=== PATIENT | female | born 1960 | race Caucasian/White ===

== ENCOUNTER 2018-10-11 07:30 | Day surgery (SDC) | payer BC ==
[~2018-10-11] VITALS: Ht 165.1 cm; Wt 76.7 kg
[~2018-10-11 07:30] MED LIST: ASPIRIN EC81 MG PO; CALCIUM + D3 E1 EACH PO; FISH OIL 1,0001 EAC3 PO; MULTI VITAMIN1 EACH PO; VITAMIN C1000 M1 PO; VITAMIN E100 UNIT PO
[2018-10-11] MEDS ORDERED: MOTRIN IB200 MG PO (10:45)
[2018-10-11] MEDS ORDERED: TYLENOL325 MG PO (10:45)
[2018-10-11] MEDS ORDERED: PERCOCET 7.5-31 EACH PO (10:46)
--- NOTE | 2018-10-17 11:12 | OR ---
[facility] [address], [place] [address] Signed DATE OF OPERATION: 10/11/2018 SURGEON: Rafal Veronica MD PREOPERATIVE DIAGNOSIS: Right upper outer quadrant breast abnormality, possible radial scar (nonpalpable). POSTOPERATIVE DIAGNOSIS: Right upper outer quadrant breast abnormality, possible radial scar (nonpalpable). PROCEDURE PERFORMED: Right upper outer quadrant breast needle localized partial breast excision. ANESTHESIA: General LMA; Rafal Bradshaw CRNA; and local 10 mL of 0.25% Marcaine with epinephrine. INDICATION: This 58-year-old white woman is a patient of Dr. Ankit Coughlin and underwent mammography showing a lesion in the upper outer aspect of the right breast that appeared stellate. Consideration was made for radial scar. An ultrasound was performed showing no sign of solid lesion. She may have family history of breast cancer in her maternal grandmother. She has never had breast problems in the past and has no associated symptoms of nipple discharge or other abnormality. She is admitted at this time to undergo a needle localized excisional biopsy. She understands the risks of bleeding, infection, cosmetic deformity, and need for further treatment should cancer be found. Understanding this, she wishes to proceed. FINDINGS: Review of the imaging studies with needle localization was undertaken with radiologist, Dr. Thacker. The area excised was wide commensurate with the size of the lesion of about 3 cm. The parenchyma of the breast that was excised felt slightly fibrous, did not feel to be a hard mass. Specimen radiograph confirmed the lesion was in the excised specimen. The specimen was oriented with sutures for pathologic reference. DESCRIPTION OF PROCEDURE: The patient was received from the radiology suite having undergone needle localization under mammographic control. Wire emanated from the outer aspect of the right breast. She was given a general anesthetic with LMA technique. Preoperative antibiotics were given. Sequential compression device stockings used and heparin subcutaneously administered. The wire emanated several centimeters from the areolar margin and most Electronically Signed By: RAFLA VERONICA MD 10/17/18 1112 PATIENT NAME: LUZ HUBBARD OPERATIVE REPORT DATE OF : 56 REPORT #: [id number] PHYSICIAN: RAFAL VERONICA MD PCP: DAVID SAINZ PAC REPORT IS CONFIDENTIAL AND NOT TO BE RELEASED WITHOUT AUTHORIZATION [facility] [address], [place] [address] Signed optimal incision was really directly near the needle. This was made in a curvilinear configuration in the lateral aspect of the right breast. Dissection carried through the dermis sharply. The wire was delivered into the wound and the parenchyma grasped with an Allis clamp. Using electrocautery excision was undertaken commensurate with the imaging localization. Wide dissection was undertaken and dissection taken well beyond the tip of the needle. The specimen was marked with a short stitch tube superiorly a long stitch laterally and a double stitch in the deep margin. Specimen sent for specimen radiograph and subsequently confirmed to have lesion in question excised. Irrigation was undertaken in the depths of the wound with saline. Electrocautery was used for hemostasis. There was a sizable defect so as to accommodate the entire lesion in question. Parenchymal reapproximation was undertaken and skin release laterally undertaken to improve cosmetic appearance. Parenchymal reapproximation was with 2-0 Vicryl and running subcuticular 3-0 Vicryl was used for the skin. At 18 mL, there were 10 mL of 0.25% Marcaine with epinephrine was injected locally. Steri-Strips were applied as was a Mepilex silver sponge dressing and an OpSite. The patient was ultimately taken to recovery room in good condition having suffered no complications. Sponge, needle, and counts were reported as correct x3. MD MARCIE Jaeger/MODL /[id number] cc: MD Danyell Rosenberg MD Copies: DANYELL THACKER MD ~ Electronically Signed By: RAFAL VERONICA MD 10/17/18 1112 PATIENT NAME: LUZ HUBBARD OPERATIVE REPORT DATE OF : 56 REPORT #: [id number] PHYSICIAN: RAFAL VERONICA MD PCP: DAVID SAINZ PAC REPORT IS CONFIDENTIAL AND NOT TO BE RELEASED WITHOUT AUTHORIZATION
== END 2018-10-11 12:25 | disposition home or self-care (01) ==
LOC: DS 07:30 → OPS 07:30 → MAM 08:30 → EDSTATUS 08:30 → OPS 12:25
PROVIDERS: Surgery
PROC: 0HBT0ZZ Excision of Right Breast, Open Approach (ICD-10-PCS; principal; 2018-10-11 09:30)
DX: D24.1 Benign neoplasm of right breast (principal); N60.31 Fibrosclerosis of right breast; N60.81 Other benign mammary dysplasias of right breast; N60.21 Fibroadenosis of right breast; R92.0 Mammographic microcalcification found on diagnostic imaging of breast; Z79.899 Other long term (current) drug therapy; Z79.82 Long term (current) use of aspirin; Z87.891 Personal history of nicotine dependence
CPT/HCPCS: 00400; 19281; 76098; J0690; J1100; J1644; J1885; J2250; J2405; J2704; J2765; J3010; J7120

== ENCOUNTER 2021-02-15 06:28 | Day surgery (SDC) | payer BC ==
[~2021-02-15] VITALS: Ht 162.6 cm; Wt 82.6 kg
[~2021-02-15 06:28] MED LIST changes: +MOTRIN IB200 MG PO; +PERCOCET 7.5-31 EACH PO; +TYLENOL325 MG PO
--- NOTE | 2021-02-15 08:15 | NUR ---
02/15/21 0815 Valerie Palomares 0756 PT ARRIVED IN PACU SLEEPY WITH NO C/O'S. ABD SOFT AND PASSING FLATUS. 0805 AT BEDSIDE TALKING TO PT. 0815 SITTING UP IN BED SIPPNG ON WATER.
--- NOTE | 2021-02-18 16:26 | OR ---
[facility] [address], [place] [address] Signed DATE OF OPERATION: 02/15/2021 SURGEON: Rafal Veronica MD PREOPERATIVE DIAGNOSES: 1. Family history of colon cancer (father). 2. Known history of diverticulosis. POSTOPERATIVE DIAGNOSES: 1. Family history of colon cancer (father). 2. Known history of diverticulosis. 3. Currently, multiple diverticula of sigmoid and left colon. No evidence of polyps. PROCEDURE: Total colonoscopy to cecum. ANESTHESIA: Intravenous sedation; fentanyl 150 mcg and Versed 5 mg. INDICATION: This 60-year-old white woman is a patient of ALEKSANDAR Mortensen. She has family history of colon cancer in her father. She last underwent colonoscopy 7 years ago at which time only diverticulosis was identified. She had no polyps. She is symptom-free at this time and admitted to undergo surveillance colonoscopy. The risks of bleeding, infection, and perforation were reviewed with her in detail. She understands and wished to proceed. FINDINGS: The prep was excellent. Complete colonoscopy was undertaken to the cecum without question. She had numerous diverticula of the sigmoid and left colon. No sign of stricture. Remaining colon was normal. There was no evidence of polyps or other abnormality. DESCRIPTION OF PROCEDURE: The patient was brought to the endoscopy suite and placed in lateral decubitus position, given intravenous sedation to the point of slurred speech and nystagmus. Digital rectal examination was normal. An Olympus video colonoscope was passed in the rectum and manipulated throughout the colon noting diverticula of the sigmoid and left colon. The scope was ultimately Electronically Signed By: RAFAL VERONICA MD 02/18/21 1626 PATIENT NAME: LUZ HUBBARD OPERATIVE REPORT DATE OF : 56 REPORT #: [id number] PHYSICIAN: RAFAL VERONICA MD PCP: DAVID SAINZ PAC REPORT IS CONFIDENTIAL AND NOT TO BE RELEASED WITHOUT AUTHORIZATION [facility] [address] [place] [id number] Signed advanced to the cecum. The cecum was fully intubated. The ileocecal valve and appendiceal orifice were normal. The scope was withdrawn from that point and examination throughout showed no sign of abnormality until diverticula of the left colon. Sigmoidal diverticula were also identified once again. Retroflexed view of the rectum was normal. The scope was removed and the patient was taken to the recovery room in good condition. CONCLUDING DIAGNOSIS: Diverticulosis, no evidence of polyps. PLAN: Recommend repeat colonoscopy in 5 years based on family history of colon cancer in her father, sooner if she should have symptoms of concern. She should maintain a high-fiber diet. She will return to the ongoing care of David Sainz. MD MARCIE Jaeger/ANTONIO /[id number] cc: David Sainz PA-C Copies: ~ Electronically Signed By: RAFAL VERONICA MD 02/18/21 1626 PATIENT NAME: LUZ HUBBARD OPERATIVE REPORT DATE OF : 56 REPORT #: [id number] PHYSICIAN: RAFAL VERONICA MD PCP: DAVID SAINZ PAC REPORT IS CONFIDENTIAL AND NOT TO BE RELEASED WITHOUT AUTHORIZATION
== END 2021-02-15 08:38 | disposition home or self-care (01) ==
LOC: DS 06:28 → OPS 06:28 → DS 06:45 → OPS 08:38
PROVIDERS: ATTEND Surgery
PROC: 0DJD8ZZ Inspection of Lower Intestinal Tract, Via Natural or Artificial Opening Endoscopic (ICD-10-PCS; principal; 2021-02-15 06:45)
DX: Z12.11 Encounter for screening for malignant neoplasm of colon (principal); Z80.0 Family history of malignant neoplasm of digestive organs; K57.30 Diverticulosis of large intestine without perforation or abscess without bleeding; Z88.1 Allergy status to other antibiotic agents; F17.290 Nicotine dependence, other tobacco product, uncomplicated; Z78.0 Asymptomatic menopausal state
CPT/HCPCS: 99153; G0500; J2250; J3010; J7121